=== PATIENT | female | born 1980 | race Caucasian/White ===

== ENCOUNTER 2016-09-15 07:24 | Observation (INO) ==
[2016-09-15] MEDS ORDERED: 0.9 % Sodium Chloride 1,000 ML IVC ONE (07:50)
[2016-09-15] MEDS ORDERED: *HR* HYDROmorphone (PF) 1 MG/ML SYRINGE IVP ONE ×2 (07:51→10:22)
--- NOTE | 2016-09-15 07:52 | Emergency Department Note ---
Disposition Clinical Impression: Acute colitis Ulcerative colitis Qualifiers: Ulcerative colitis location: unspecified ulcerative colitis location Digestive disease complication type: unspecified complication Qualified Code(s): K51.919 - Ulcerative colitis, unspecified with unspecified complications Abdominal pain Qualifiers: Abdominal location: unspecified location Qualified Code(s): R10.9 - Unspecified abdominal pain Nausea & vomiting Qualifiers: Vomiting type: unspecified Vomiting Intractability: unspecified Qualified Code( s): R11.2 - Nausea with vomiting, unspecified Disposition: Admitted As Inpatient Condition: Good Time of Disposition: 10:52 Abdominal Pain HPI - General Chief Complaint: ED Abdominal Pain Stated Complaint: ABD Pain,Vomitting Time Seen by Provider: 09/15/16 07:33 Source: patient Mode of arrival: ambulatory Limitations: no limitations Nursing Notes Reviewed: Yes Vital Signs Reviewed: Yes - History of Present Illness HPI Narrative: 35-year-old female history of ulcerative colitis presents ED with abdominal pain and vomiting. This is been ongoing for past several days and was recently seen in the ED 3 days ago for similar symptoms. Diffuse abdominal pain mostly in the left abdomen with no radiation. At first she is unable to put the pain into words but later describes pain as a crampy dull ache. Movement makes it worse. Nothing seems to make it better. She was prescribed morphine and Zofran for symptoms however the morphine gave her headache and has not taken any since. She has associated diarrhea that is chronic. Episode of nonbloody emesis this morning when she tried to eat breakfast. Reports of fever 3 days ago as high as 102. Denies any recent illness, cough, rhinorrhea, shortness of breath or chest pain. Denies any recent travel or rashes. She reports being offered admission on ED evaluation Tuesday but she declined. CT imaging of her abdomen revealed left colitis and a mass on the right kidney. She follows with Dr. Armenta and currently does not take any medications for her UC. She reports they tried infusions in the past but she did not tolerate it well and was discontinued. She saw her primary care physician Dr. Agee yesterday. History of a tubal ligation. No other prior abdominal surgeries. Pt Subjective Complaint: abdominal pain Pain Scale: 7 - Related Data Previous Rx's Medication Instructions Recorded Morphine Immed Rel [Morphine 30 mg PO Q6HR PRN #12 tablet 09/12/16 Sulfate] Ondansetron [Zofran ODT] 8 mg SL Q4HR PRN #10 tab.rapdis 09/12/16 Allergies Allergy/AdvReac Type Severity Reaction Status Date / Time Penicillins [PCN] Allergy Difficulty Verified 05/21/15 12:05 Breathing All systems ED: reviewed and negative except as stated. Constitutional: Reports: fever. Denies: chills Cardiovascular: Denies: chest pain Respiratory: Denies: cough, dyspnea Gastrointestinal: Reports: abdominal pain, nausea, vomiting, diarrhea. 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 Psychiatric history: Reports: no psych history - Social History Smoking status: Never smoker Alcohol use: Reports: none Drug use: Reports: none Physical Exam - General Limitations: no limitations General appearance: alert, in no apparent distress - Head Head exam: atraumatic, normocephalic, normal inspection - Eye Eye exam: Present: normal appearance, PERRL, EOMI - ENT ENT exam: normal exam, normal oropharynx, mucous membranes dry - Neck Neck exam: Present: normal inspection, full ROM, trachea midline - Chest Chest inspection: Present: normal inspection, symmetric chest wall rise - Respiratory Respiratory exam: Present: normal lung sounds bilaterally. Absent: respiratory distress, wheezes - Cardiovascular Cardiovascular exam: Present: regular rate, normal rhythm, normal heart sounds. Absent: systolic murmur, diastolic murmur - Abdominal Exam Abdominal exam: Present: soft, tenderness, normal bowel sounds. Absent: Non- Tender, distention, guarding, rebound, rigidity, incision, Sommer's sign, Rovsing's sign, tenderness at McBurney's Point, scar Abdominal tenderness: Present: RLQ, LLQ, suprapubic, diffuse - Extremities Exam Extremities exam: Present: normal inspection, full ROM, normal capillary refill. Absent: tenderness, pedal edema, calf tenderness - Back Exam Back exam: Present: normal inspection, full ROM. Absent: tenderness, CVA tenderness (R), CVA tenderness (L) - Neurological Exam Neurological exam: Present: alert, oriented X3 - Psychiatric Psychiatric exam: Present: normal affect, normal mood - Skin Skin exam: Present: warm, dry, intact, normal color Course Course Narrative: 35-year-old female history of ulcerative colitis presents to the ED with abdominal pain and vomiting. This has been ongoing for past several days. Patients afebrile here. Appear in no acute distress. She is slightly tachycardic. Lungs are clear auscultation bilaterally. Abdomen is soft nondistended and not rigid. She has diffuse tenderness to lower quadrants, most in the left lower quadrant. Negative McBurney's point. No CVA tenderness. Oral mucosa is tacky. Will recheck bloodwork, urine, IV hydration and symptom control. Reveal of her imaging and labs from 3 days prior reveals hemicolitis and a hypodense mass on the right kidney that will likely need follow up with PCP or Urologist. - Reevaluation(s) Reevaluation #1: Reviewed CT from 09/12/2016 which shows acute moderate left hemicolitis no obstruction perforation or abscess. There is also a 1.2 cm hypo density along the right mid kidney and pyelonephritis cannot be excluded. After 1L of lfuids and zofran with dilaudid she continues to be in discomfort. She remains tachycardic in the low 100s. Will give her a second liter and medications and call GI Dr. Armenta for any further management recommendations. Patient is aware of plan and agrees. She vocalizes wanting admission for treatment and hydration as she is scheduled to begin a new infusion medication for UC. Time: 10:45 - Consultations Consultation #1: Spoke with Dr. Armenta, GI, offered discharge with steroids or admission with IV steroids. Awaiting to get started on Ativo. Time: 10:49 Consultation #2: Spoke with on-call hospitalist edilberto Daley to admit for colitis, ulcerative colitis, and abdominal pain. No further orders at this time Time: 10:52 Vital Signs Temperature 97.9 F 09/15/16 07:27 Pulse Rate 104 09/15/16 07:27 Respiratory Rate 18 09/15/16 07:27 Blood Pressure 114/83 09/15/16 07:27 O2 Sat by Pulse Oximetry 97 09/15/16 07:27 Temperature 97.9 F 09/15/16 07:27 Pulse Rate 61 09/15/16 11:30 Respiratory Rate 16 09/15/16 12:48 Blood Pressure 122/69 09/15/16 12:48 O2 Sat by Pulse Oximetry 97 09/15/16 11:30 Oxygen Delivery Oxygen Delivery Room Air Abdominal Pain - MDM Narrative Medical decision making narrative: I examined this patient and my medical decision-making was reviewed with the AUTOMOTIVE ALIGNMENT SPECIALIST/PA/Advanced Practice Nurse/Resident Physician. I agree with the documented findings, disposition and treatment plan as described except to the extent set forth below. Patient was seen and evaluated by Dr. Manning and myself, agree with his evaluation and management plan, supervised care the patient's stay. Patient has a history of colitis. Was seen here in the emergency department had a scan done which showed colitis. Also an undifferentiated mass on her kidney. She went home with pain and nausea meds. She thinks she is dehydrated. We will try to place an IV and give her some fluids recheck her labs and reassess. She has a nonsurgical abdomen here I do not think she needs a CT of her abdomen. She will need follow-up with GI who she sees. Also urology referral. She is in agreement with plan. 0956 hrs.: Patient's labs look good. She does not appear dehydrated. She is getting fluids. Then we will reassess. Discuss her with her GI physician and most likely she will be dispositioned to home. She is in agreement this plan. 1046 hrs.: Spoke with GI and they said they can do steroids and send her home or steroids and admit. Patient wants to be admitted. We will bring her into the hospital impressions acute exacerbation of colitis. Patient stable at this time. Speaking with hospitalist. - Medical Records Medical records reviewed: Yes I reviewed the patient's medical records. - Lab Data Lab results reviewed: Yes I reviewed the patient's lab results. Result diagrams: 09/15/16 08:50 09/15/16 08:50 Lab Results 09/15/16 09/15/16 09/15/16 Range/Units 08:41 08:50 08:50 WBC 8.9 (4.3-11.1) K/mcL RBC 4.17 (3.82-4.97) M/mcL Hgb 12.3 (11.5-15.4) g/dL Hct 36.8 (35.3-44.9) % MCV 88.2 (83.0-100.0) fL MCH 29.5 (28.0-33.3) pg MCHC 33.4 (31.6-35.5) g/dL RDW 13.2 (11.5-14.5) % Plt Count 436 H (140-400) K/mcL MPV 8.6 L (9.4-12.4) fL Immature Gran % 0.7 (0-4) % Seg Neutrophils % 79.0 % Lymphocytes % 12.0 % Monocytes % 7.1 % Eosinophils % 0.6 % Basophils % 0.6 % Neutrophils # 7.0 (1.6-8.9) K/mcL Lymphocytes # 1.1 (0.6-4.6) K/mcL Monocytes # 0.6 (0.0-1.3) K/mcL Eosinophils # 0.1 (0.0-0.6) K/mcL Basophils # 0.1 (0.0-0.2) K/mcL Sodium 137 (136-145) mEq/L Potassium 3.5 (3.5-4.5) mEq/L Chloride 103 (98-109) mEq/L Carbon Dioxide 26 (19-29) mEq/L BUN 5 L (7-20) mg/dL Creatinine 0.64 (0.57-1.11) mg/dL Est GFR ( Amer) > 60 (> 60) Est GFR (Non-Af Amer) > 60 (> 60) BUN/Creatinine Ratio 8 (6-26) Glucose 100 H (70-99) mg/dL Calculated Osmolality 281 (280-300) Calcium 8.7 (8.6-10.8) mg/dL Total Bilirubin 0.4 (0.2-1.2) mg/dL Direct Bilirubin 0.2 (0.0-0.5) mg/dL Indirect Bilirubin 0.2 (0.0-1.2) mg/dL AST 10 (5-34) Units/L ALT 10 (0-55) Units/L Alkaline Phosphatase 67 (38-126) Units/L Serum Total Protein 7.0 (6.0-8.3) g/dL Albumin 2.6 L (3.5-5.0) g/dL Globulin 4.4 H (2.4-3.5) g/dL Albumin/Globulin Ratio 0.6 L (1.1-2.2) Lipase < 4 L (8-78) Units/L Urine Color Dark Yellow (Yellow) Urine Clarity Cloudy A (Clear) Urine pH 7.5 (5.0-8.0) pH Units Ur Specific [place] 1.020 (1.010-1.025) Urine Protein Trace (Neg-Trace) mg/dL Urine Glucose (UA) Normal (Normal) mg/dL Urine Ketones Negative (Negative) mg/dL Urine Blood Negative (Negative) Urine Nitrite Negative (Negative) Urine Bilirubin Small H (Negative) Urine Urobilinogen Normal (Normal) mg/dL Ur Leukocyte Esterase Small H (Negative) Urine Microscopic RBC 0-3 (0-3) per hpf Urine Microscopic WBC 3-5 H (0-3) per hpf Ur Squamous Epith Cells Many H (None-Few) per lpf Calcium Oxalate Crystal Present Urine Bacteria None Seen (None-Few) per hpf Hyaline Casts None Seen (None-Few) per lpf Urine Yeast Test Not Performed Ur Culture Indicated? YES A (NO) - Radiology Data Radiology results reviewed: Yes I reviewed the patient's radiology results. CT reviewed showed acute moderate left lissy colitis with no obstruction perforation or abscess
[2016-09-15] MEDS: Ondansetron 4 MG/2 ML VIAL IVP ONE ×2 (08:57→10:43)
[2016-09-15 08:59] LABS: Basophils # 0.1 K/mcL (0.0-0.2); Basophils % 0.6 %; Eosinophils # 0.1 K/mcL (0.0-0.6); Eosinophils % 0.6 %; Hematocrit 36.8 % (35.3-44.9); Hemoglobin 12.3 g/dL (11.5-15.4); Immature Granulocytes % 0.7 % (0-4); Lymphocytes # 1.1 K/mcL (0.6-4.6); Mean Corpuscular HGB Conc 33.4 g/dL (31.6-35.5); Mean Corpuscular Hemoglobin 29.5 pg (28.0-33.3); Mean Corpuscular Volume 88.2 fL (83.0-100.0); Mean Platelet Volume 8.6 fL (9.4-12.4); Monocytes # 0.6 K/mcL (0.0-1.3); Monocytes % 7.1 %; Platelet Count 436 K/mcL (140-400); Red Blood Count 4.17 M/mcL (3.82-4.97); Red Cell Distribution Width 13.2 % (11.5-14.5)
[2016-09-15 08:59] LABS: Bilirubin,Urine Small (Negative); Blood,Urine Negative (Negative); Clarity,Urine Cloudy (Clear); Color,Urine Dark Yellow (Yellow); Glucose,Urine (UA) Normal (Normal); Ketones,Urine Negative (Negative); Leukocyte Esterase,Urine Small (Negative); Nitrite,Urine Negative (Negative); PH,Urine 7.5 pH Units (5.0-8.0); Protein,Urine Trace mg/dL (Neg-Trace); Urobilinogen,Urine Normal (Normal)
[2016-09-15 09:02] LABS: Bacteria,Urine None Seen per hpf (None-Few); Hyaline Casts,Urine None Seen per lpf (None-Few); RBC,Urine 0-3 per hpf (0-3); Squamous Epithelial Cell,Urine Many per lpf (None-Few)
[2016-09-15 09:06] LABS: Calcium Oxalate Crystals,Urine Present
[2016-09-15 09:11] LABS: Alanine Aminotransferase 10 Units/L (0-55); Albumin 2.6 g/dL (3.5-5.0); Albumin/Globulin Ratio 0.6 (1.1-2.2); Alkaline Phosphatase 67 Units/L (38-126); Aspartate Amino Transferase 10 Units/L (5-34); BUN/Creatinine Ratio 8 (6-26); Bilirubin,Direct 0.2 mg/dL (0.0-0.5); Bilirubin,Indirect 0.2 mg/dL (0.0-1.2); Bilirubin,Total 0.4 mg/dL (0.2-1.2); Calcium 8.7 mg/dL (8.6-10.8); Carbon Dioxide 26 mEq/L (19-29); Chloride 103 mEq/L (98-109); Globulin 4.4 g/dL (2.4-3.5); Glucose 100 mg/dL (70-99); Osmolality,Calculated 281 (280-300); Potassium 3.5 mEq/L (3.5-4.5); Sodium 137 mEq/L (136-145); eGFR For African Americans > 60 (> 60); eGFR For Non-African Americans > 60 (> 60)
[2016-09-15 09:13] LABS: Blood Urea Nitrogen 5 mg/dL (7-20); Lipase < 4 Units/L (8-78)
[2016-09-15] MEDS: 0.9 % Sodium Chloride 1,000 ML IVC SCH ×3 (10:33→13:00)
[2016-09-15] MEDS ORDERED: Ondansetron 4 MG/2 ML VIAL IV ONE (10:36)
[2016-09-15] MEDS ORDERED: methylPREDNISolone 125 MG/2 ML VIAL IVP ONE (10:46)
[2016-09-15] MEDS ORDERED: 0.9 % Sodium Chloride 1,000 ML IVC SCH (12:00)
[2016-09-15] MEDS ORDERED: Ondansetron 4 MG/2 ML VIAL IVP PRN (12:40)
[2016-09-15] MEDS ORDERED: Naloxone 0.4 MG/ML INJ IVP PRN (12:40)
--- NOTE | 2016-09-15 12:53 | Internal Med History&Physical ---
<Shahla Padron - Last Filed: 09/15/16 20:01> Internal Medicine - H&P: HPI History of present illness: Ms. Perez is a 35 year old female Internal Medicine - H&P: Meds Morphine Immed Rel [Morphine Sulfate] 30 mg PO Q6HR PRN #12 tablet 09/12/16 [Rx] Ondansetron [Zofran ODT] 8 mg SL Q4HR PRN #10 tab.rapdis 09/12/16 [Rx] Allergies Penicillins [PCN] Allergy (Verified 05/21/15 12:05) Difficulty Breathing All Systems PM: A 10-system review of systems was performed and is negative for pertinent findings except as documented above in the HPI. - Constitutional Vitals: Temp Pulse Resp BP Pulse Ox 98.1 F 89 16 104/66 95 09/15/16 13:30 09/15/16 13:30 09/15/16 13:30 09/15/16 13:30 09/15/16 13:30 Internal Med - H&P Results - Labs CBC & Chem 7: 09/15/16 08:50 09/15/16 08:50 - Attending Attestation Patient seen and examined, agree with PIETER Montez. 35F with history of UC, failed numerous medications regimens, presents with UC flare. Severe abdominal pain, poor PO intake. IV steroids started in ER, will continue. GI consulted, appreciate assistance. <Mone Montez L - Last Filed: 09/15/16 21:32> Date of Encounter: 09/15/16 Time of Encounter: 11:30 Assessment and Plan (1) Acute colitis Current visit: Yes Status: Acute 1 patient has past history of ulcerative colitis is seen by has failed several outpatient oral medication as well as IV. She has been experiencing increasing abdominal pain and loose stool bloody diarrhea for several days. was notified per the ED physician discussed case recommending steroid treatment and will follow-up. 2 continue with IV steroids 3 nothing by mouth for now and advance diet as tolerated 4 Zofran for nausea 5 Diladid for pain (2) DVT prophylaxis Current visit: Yes Status: Acute JO ANN hose (3) Renal mass of unknown nature Current visit: Yes Status: Acute CT of abd revealed Indeterminate approximately 1.2 cm focus of hypodensity density along the right mid kidney focal, pyelonephritis cannot be excluded. Urinalysis not indicative of pylonephritis, no leukocytosis. may need further diagnostic testing as outpatient, will have day team follow up Internal Medicine - H&P: HPI Chief complaint: Abdominal pain Admitted From: Emergency Dept Plans for Post Hospital Care: Home History of present illness: Ms. Perez is a 35 year old female past history of ulcerative colitis. Patient has been experiencing diffuse abdominal pain mostly in the left lower abdomen for several days and was seen recently in the ER 3 days ago for similar symptoms. At that time CT imaging of her abdomen revealed left colitis and a mass on her right kidney. She was offered admission however declined at that time. She was prescribed morphine and Zofran for symptoms however the morphine gave her a headache and she did not take any sense. The patient describes the abdominal pain mostly in her left abdomen with no radiation describing as crampy dull aching. Movement makes it worse she states that they really makes it feel better. She has associated diarrhea that is chronic and episodes of nonbloody emesis this a.m. when she tried to eat breakfast. She did have a fever approximately 3 days ago which she stated was as high as 102. She denies any recent illness cough rhinorrhea shortness of breath or chest pain. She denies any recent travel or rashes. She follows with Dr. Armenta and had failed multiple oral medications. She was placed on Humira as well as Remicade which were stopped due to side effects. She presented to the ER with the above complaints. According to records patient presented slightly tachycardic she was afebrile she was given IV fluids as well as Zofran and Dilaudid. Lab work did not show any leukocytosis Dr. Ríos was notified who suggested oral steroids and discharged home on admission with IV steroids. Patient requested to be admitted to the physician place consult for Dr. Armenta. Presently the patient appears to be mild distress complains of abdominal cramping and lower abdomen. Upon assessment patient's abdomen is soft nondistended diffuse tenderness upon palpation throughout with guarding. Patient denies any nausea or vomiting at this time and is requesting something to eat. Presently the patient appears hemodynamically stable Past Med Surg Social Fam HX - Past Medical History Medical history: other Psychiatric history: no psych history - Social History Smoking Status: Never smoker Smokeless Tobacco Status: No Alcohol use: none Drug use: none - Family History Mother Living Status: Hx Family Cancer: Yes (Renal cancer) Father Living Status: Still Living Hx Family Cardiac Disorders: Yes All Systems PM: A 10-system review of systems was performed and is negative for pertinent findings except as documented above in the HPI. - Constitutional Constitutional: anorexia, malaise - Cardiovascular Cardiovascular ROS IM: no chest pain, no diaphoresis, no dyspnea, no lightheadedness, no palpitations, no syncope - Respiratory Respiratory: no cough, no dyspnea, no wheezing, no excessive phlegm production - Gastrointestinal Gastrointestinal: abdominal pain, cramping, loose stools Additional comments: Bloody stools - Genitourinary Genitourinary: no change in urinary stream, no dysuria, no flank pain, no hematuria - Musculoskeletal Musculoskeletal ROS IM: no numbness, no tingling - Integumentary Integumentary IM: no rash, no unusual bruising - Neurological Neurological ROS: no confusion, no convulsions, no focal weakness, no numbness, no tingling, no tremor(s) - Constitutional Vitals: Temp Pulse Resp BP Pulse Ox 97.9 F 61 18 100/69 97 09/15/16 07:27 09/15/16 11:30 09/15/16 11:30 09/15/16 11:30 09/15/16 11:30 General appearance: Present: mild distress, A&O X 3, answers questions appropriately - Head Head exam: Present: atraumatic, normocephalic - Neck Neck exam general surgery: Present: supple, trachea midline. Absent: lymphadenopathy - Respiratory Respiratory exam: Present: CTAB. Absent: accessory muscle use, rales, rhonchi, wheezes - Cardiovascular Cardiovascular exam: Present: RRR, +S1, +S2. Absent: diastolic murmur, gallop, rubs, systolic murmur - GI/Abdominal GI/Abdominal exam: Present: guarding, normal bowel sounds, soft, tenderness, no peritoneal signs. Absent: distended - Extremities Exam Extremities exam: Present: warm, radial pulses palpable and symetrical. Absent : calf tenderness, cyanotic, pedal edema - Neurological Exam Neurological exam: Present: CN II-XII intact, oriented X3, no focal deficits. Absent: pronater drift, facial droop, speech deficit - Skin Skin exam: Present: dry, intact Internal Med - H&P Results - Labs CBC & Chem 7: 09/15/16 08:50 09/15/16 08:50 - Diagnostic Studies CT scan - abdomen Additional comments: CT of abdomen dated 09/12/16 per radiology read acute moderate left heme occult colitis with no obstruction perforation or abscess. Indeterminate approximately 1.2 cm focus of hypodensity density along the right mid kidney focal pyelonephritis cannot be excluded. The area of interest was not identified on the prior noncardiac contrast exam. If there is no concern clinically and by urinalysis of pyelonephritis and follow up CT renal mass protocol is recommended to further characterize the right renal lesion.
[2016-09-16] MEDS: 0.9 % Sodium Chloride 1,000 ML IVC SCH ×2 (01:27→09:15)
[2016-09-16 05:22] LABS: Basophils % 0.3 %; Hematocrit 31.3 % (35.3-44.9); Immature Granulocytes % 0.8 % (0-4); Lymphocytes # 0.9 K/mcL (0.6-4.6); Lymphocytes % 11.5 %; Mean Corpuscular HGB Conc 32.6 g/dL (31.6-35.5); Mean Corpuscular Hemoglobin 29.1 pg (28.0-33.3); Mean Corpuscular Volume 89.4 fL (83.0-100.0); Monocytes # 0.6 K/mcL (0.0-1.3); Monocytes % 7.9 %; Neutrophils # 6.3 K/mcL (1.6-8.9); Platelet Count 405 K/mcL (140-400); Red Cell Distribution Width 13.2 % (11.5-14.5); Segmented Neutrophils % 79.5 %
[2016-09-16 05:26] LABS: Hemoglobin 10.2 g/dL (11.5-15.4)
[2016-09-16 05:48] LABS: BUN/Creatinine Ratio 5 (6-26); Carbon Dioxide 24 mEq/L (19-29); Chloride 106 mEq/L (98-109); Glucose 103 mg/dL (70-99); Osmolality,Calculated 283 (280-300); Potassium 3.6 mEq/L (3.5-4.5); Sodium 138 mEq/L (136-145); eGFR For African Americans > 60 (> 60); eGFR For Non-African Americans > 60 (> 60)
[2016-09-16 05:50] LABS: Blood Urea Nitrogen 3 mg/dL (7-20)
[2016-09-16 06:06] LABS: Platelet Estimate Normal (Normal)
[2016-09-16] MEDS ORDERED: MethylPREDNISolone 40 MG/ML VIAL IVP SCH (09:00)
--- NOTE | 2016-09-16 09:20 | Internal Med Progress Note ---
<Bam Kennedy - Last Filed: 09/16/16 12:41> Date of Encounter: 09/16/16 Time of Encounter: 09:00 - Assessment and plan (1) Acute colitis Current Visit: Yes Status: Acute Assessment and plan: Likely secondary to an acute flare up of Ulcerative Colitis. CT abdomen/pelvis with contrast revealed acute moderate left hemicolitis with no obstruction, perforation, or abscess. Gastroenterology has been consulted, continue IV steroids Increased to Solu-Medrol 60 mg qd. Pain being controlled with PRN Dilaudid 0.5 mg Q4HR (2) Ulcerative colitis Current Visit: Yes Status: Acute Assessment and plan: Per plan in assessment above. Qualifiers: Ulcerative colitis location: unspecified ulcerative colitis location Digestive disease complication type: unspecified complication Qualified Code(s ): K51.919 - Ulcerative colitis, unspecified with unspecified complications (3) Abdominal pain Current Visit: Yes Status: Acute Assessment and plan: Secondary to acute flare up of Ulcerative Colitis. Continue IV steroids Continue pain management GI has been consulted. Qualifiers: Abdominal location: unspecified location Qualified Code(s): R10.9 - Unspecified abdominal pain (4) Nausea & vomiting Current Visit: Yes Status: Acute Assessment and plan: Has improved since admission but will continue to treat with anti-emetics PRN Increase diet as tolerated. Qualifiers: Vomiting type: unspecified Vomiting Intractability: unspecified Qualified Code(s): R11.2 - Nausea with vomiting, unspecified (5) Renal mass of unknown nature Current Visit: Yes Status: Acute Assessment and plan: CT abdomen/pelvis with contrast revealed indetermintate 1.2 cm focus of hypodensity along the right mid kidney. Focal pyelonephritis cannot be excluded. The area of interest was not identified on prior noncontrasted exam. Follow up CT renal mass protocol is recommended to characterize right renal lesion. No concern at this time for pyelonephritis in the absence of elevated WBC, urinary symptoms, exam findings, and presence of normal vital signs. Follow up with PCP as outpatient and CT ordered for further evaluation for renal lesion ordered. (6) DVT prophylaxis Current Visit: Yes Status: Acute Assessment and plan: Patient is ambulatory. Continue to encourage ambulation. - Subjective Interval history: 35 year old female with a history of Ulcerative colitis presented to the ED with abdominal pain, nausea and vomiting that has been going on for about a week. She is followed by Dr. Armenta and states that she saw him last Tuesday and symptoms really flared up on . Patient states that she has also had bloody diarrhea which has been going on for about a month but states that it has improved some. Patient reports mostly left sided abdominal pain but also has a little pain in the RUQ to mid epigastric area. States that her pain is worsened by walking and also by having a bowel movement. Patient reports that she does not tolerate a liquid diet very well because broth makes her even more nauseated. She would like her diet advanced and feels like she could tolerate a normal diet. She states that she is pleased with her pain control and the pain is improved from yesterday. She reports sweats overnight. Denies fever, chills, headaches, vomiting, chest pain, shortness of breath, changes in urination, weakness, or loss of sensation. - Constitutional Vitals: Temp Pulse Resp BP Pulse Ox 98.2 F 74 14 97/59 97 09/16/16 07:02 09/16/16 07:02 09/16/16 07:02 09/16/16 07:02 09/16/16 07:02 General appearance: Present: A&O X 3, no acute distress, answers questions appropriately - Head Head exam: Present: atraumatic, normal inspection, normocephalic - Eye Eye exam: Present: EOMI, normal appearance, PERRL. Absent: conjunctival injection - Neck Neck exam general surgery: Present: normal inspection, supple, trachea midline. Absent: lymphadenopathy - Respiratory Respiratory exam: Present: CTAB. Absent: accessory muscle use, rales, rhonchi, wheezes - Cardiovascular Cardiovascular exam: Present: RRR, +S1, +S2. Absent: diastolic murmur, gallop, rubs, systolic murmur - GI/Abdominal GI/Abdominal exam: Present: normal bowel sounds, soft, tenderness (epigastric tenderness). Absent: distended, guarding, rebound - Extremities Exam Extremities exam: Present: normal inspection, warm. Absent: calf tenderness, pedal edema, tenderness - Neurological Exam Neurological exam: Present: alert, CN II-XII intact, oriented X3, no focal deficits, strengths equal and symetr throughout. Absent: facial droop, speech deficit - Skin Skin exam: Present: dry, intact, normal color, warm. Absent: diaphoretic, erythema, pallor Internal Medicine: Result - Labs CBC & Chem 7: 09/16/16 04:28 09/16/16 04:28 Labs: Short CBC 09/16/16 Range/Units 04:28 WBC 7.9 (4.3-11.1) K/mcL Hgb 10.2 L D (11.5-15.4) g/dL Hct 31.3 L (35.3-44.9) % Plt Count 405 H (140-400) K/mcL Neutrophils # 6.3 (1.6-8.9) K/mcL BMP 09/16/16 04:28 Sodium 138 Potassium 3.6 Chloride 106 Carbon Dioxide 24 BUN 3 L Creatinine 0.57 Glucose 103 H Calcium 8.0 L Consult Discharge Plan - Plan Referrals: Pat Agee, ROOFING SUPERVISOR [Primary Care Provider] - <Yessica Laird - Last Filed: 09/16/16 18:53> - Constitutional Vitals: Temp Pulse Resp BP Pulse Ox 99.4 F 82 16 102/61 96 09/16/16 18:41 09/16/16 18:41 09/16/16 18:41 09/16/16 18:41 09/16/16 18:41 Internal Medicine: Result - Labs CBC & Chem 7: 09/16/16 04:28 09/16/16 04:28 Labs: Short CBC 09/16/16 Range/Units 04:28 WBC 7.9 (4.3-11.1) K/mcL Hgb 10.2 L D (11.5-15.4) g/dL Hct 31.3 L (35.3-44.9) % Plt Count 405 H (140-400) K/mcL Neutrophils # 6.3 (1.6-8.9) K/mcL BMP 09/16/16 04:28 Sodium 138 Potassium 3.6 Chloride 106 Carbon Dioxide 24 BUN 3 L Creatinine 0.57 Glucose 103 H Calcium 8.0 L - Attending Attestation I examined this patient and reviewed laboratory, imaging and all diagnostic data. My medical decision-making was reviewed with Bam Bautista - Resident Physician. I agree with the documented findings, disposition and treatment plan as described above.
[2016-09-16] MEDS ORDERED: MethylPREDNISolone 40 MG/ML VIAL IVP ONE (10:00)
[2016-09-16] MEDS: *HR* HYDROmorphone (PF) 1 MG/ML SYRINGE IVP PRN (10:40)
--- NOTE | 2016-09-16 11:31 | Gastroenterology Consult Note ---
<Hood Woodward - Last Filed: 09/16/16 11:28> Date of Encounter: 09/16/16 Time of Encounter: 10:20 - Assessment and plan (1) Ulcerative colitis Current Visit: Yes Status: Acute Assessment and plan: CT A/P with acute moderate left hemicolitis, no obstruction, perforation, or abscess. Increase Solu-Medrol to 60 mg daily. Entyvio has been improved. We will start Entyvio as an outpatient. TB testing negative, histo negative, and hepatitis profile negative. Qualifiers: Ulcerative colitis location: unspecified ulcerative colitis location Digestive disease complication type: unspecified complication Qualified Code(s ): K51.919 - Ulcerative colitis, unspecified with unspecified complications (2) Abdominal pain Current Visit: Yes Status: Acute Assessment and plan: Secondary to ulcerative colitis. Qualifiers: Abdominal location: unspecified location Qualified Code(s): R10.9 - Unspecified abdominal pain (3) Nausea & vomiting Current Visit: Yes Status: Acute Assessment and plan: Continue antiemetics. Qualifiers: Vomiting type: unspecified Vomiting Intractability: unspecified Qualified Code(s): R11.2 - Nausea with vomiting, unspecified - Time Spent With Patient Total time spent is greater than 50% in coordination of care (as documented) at patient's floor/unit and/or counseling patient: GI History of Present Illness - Data of Consult Patient: known to practice within the last 3 years Consult date: 09/16/16 Requesting Physician: Yessica Laird - Consult Narrative Reason for consult: UC History of present illness: Ms. Perez is a 35 year old female with PMHx of ulcerative colitis who presented with LLQ pain for several days. She was seen in the ED on 09/12/[address] A/P with acute moderate left hemicolitis, no obstruction, perforation, or abscess. She refused admission at that time. She describes her abdominal pain as crampy, dull, and aching. Movement makes the pain worse. She reports diarrhea and emesis. She follows with Dr. Armenta and has failed multiple oral medications. Humira and Remicade were stopped due to side effects. She was started on Solu-Medrol 40 mg daily on admission. Procedures: Colonoscopy 05/21/15 Dr. Armenta inflammation secondary to IBD in rectum /sigmoid/descending. NSAIDs: None Anticoagulation: None Past Med Surg Social Fam HX - Past Medical History Medical history: other Psychiatric history: no psych history - Social History Smoking Status: Never smoker Smokeless Tobacco Status: No Alcohol use: none Drug use: none - Family History Mother Living Status: Hx Family Cancer: Yes (Renal cancer) Father Living Status: Still Living Hx Family Cardiac Disorders: Yes - Gastrointestinal Gastrointestinal: Present: as per HPI - Constitutional Constitutional: as per HPI - EENT Eyes: as per HPI Ears: Present: as per HPI Nose, mouth and throat: Present: as per HPI - Cardiovascular Cardiovascular ROS: Present: as per HPI - Respiratory Respiratory IM: Present: as per HPI - Genitourinary Genitourinary: Absent: change in color, Urinary frequency - Neurological ROS Neurological GI: Present: as per HPI - Hematologic/Lymphatic Hematologic/Lymphatic pediatric: Present: as per HPI - Musculoskeletal Musculoskeletal ROS GI: Present: as per HPI - Integumentary Integumentary GI: Present: as per HPI - Psychiatric ROS Psychiatric GI: Present: as per HPI - Endocrine Endocrine IM: Present: as per HPI - Constitutional Vitals: Temp Pulse Resp BP Pulse Ox 98.3 F 77 14 121/75 96 09/16/16 10:38 09/16/16 10:38 09/16/16 10:38 09/16/16 10:38 09/16/16 10:38 General appearance: Present: cooperative, A&O X 3, no acute distress, answers questions appropriately - Head Head exam: Present: atraumatic, normocephalic - Eye Eye exam: Present: normal appearance, sclera anicteric - ENT ENT exam: Present: mucous membranes moist - Neck Neck exam general surgery: Present: normal inspection, trachea midline - Respiratory Respiratory exam: Present: CTAB. Absent: rales, rhonchi, wheezes - Cardiovascular Cardiovascular exam: Present: RRR, +S1, +S2 - GI/Abdominal GI/Abdominal exam: Present: normal bowel sounds, soft, tenderness, no peritoneal signs. Absent: distended, firm, guarding - Rectal Rectal exam: Present: deferred - Extremities Exam Extremities exam: Present: warm - Neurological Exam Neurological exam: Present: no focal deficits - Psychiatric Psychiatric exam: Present: normal affect, normal mood - Skin Skin exam: Present: dry, intact, normal color, warm Results - Labs CBC & Chem 7: 09/16/16 04:28 09/16/16 04:28 Labs: Last Result Calcium 8.0 mg/dL (8.6-10.8) L 09/16/16 04:28 Entire Visit Hgb 10.2 g/dL (11.5-15.4) L D 09/16/16 04:28 Hct 31.3 % (35.3-44.9) L 09/16/16 04:28 Total Bilirubin 0.4 mg/dL (0.2-1.2) 09/15/16 08:50 AST 10 Units/L (5-34) 09/15/16 08:50 ALT 10 Units/L (0-55) 09/15/16 08:50 Lipase < 4 Units/L (8-78) L 09/15/16 08:50 Consult Discharge Plan - Plan Referrals: Pat Agee, DRYING MACHINE OPERATOR [employer] [Primary Care Provider] - <Herrera Armenta - Last Filed: 09/16/16 17:48> Time of Encounter: 13:00 - Time Spent With Patient Total time spent is greater than 50% in coordination of care (as documented) at patient's floor/unit and/or counseling patient: GI History of Present Illness - Data of Consult Requesting Physician: Yessica Laird - Consult Narrative History of present illness: Ms. Perez is a 35 year old female - Constitutional Vitals: Temp Pulse Resp BP Pulse Ox 97.5 F L 78 14 109/70 96 09/16/16 14:46 09/16/16 14:46 09/16/16 14:46 09/16/16 14:46 09/16/16 14:46 Results - Labs CBC & Chem 7: 09/16/16 04:28 09/16/16 04:28 Labs: Last Result Calcium 8.0 mg/dL (8.6-10.8) L 09/16/16 04:28 Entire Visit Hgb 10.2 g/dL (11.5-15.4) L D 09/16/16 04:28 Hct 31.3 % (35.3-44.9) L 09/16/16 04:28 Total Bilirubin 0.4 mg/dL (0.2-1.2) 09/15/16 08:50 AST 10 Units/L (5-34) 09/15/16 08:50 ALT 10 Units/L (0-55) 09/15/16 08:50 Lipase < 4 Units/L (8-78) L 09/15/16 08:50 - Attending Attestation I examined this patient and my medical decision-making was reviewed with the PET TRAINER/PA/Advanced Practice Nurse/Resident Physician. I agree with the documented findings, disposition and treatment plan as described except to the extent set forth below. Cont IV steroids and switch to pO Medrol 32 mg on discharge. Cannot have entyvio as in pt and for 24 hr after d/c otherwise will not be covered.
[2016-09-17] MEDS: *HR* HYDROmorphone (PF) 1 MG/ML SYRINGE IVP PRN ×2 (00:36→08:03)
[2016-09-17 08:02] VITALS: BP 109/68
--- NOTE | 2016-09-17 08:25 | Internal Med Progress Note ---
Time of Encounter: 08:25 - Assessment and plan (1) Acute colitis Current Visit: Yes Status: Acute Assessment and plan: Secondary to acute exacerbation ulcerative colitis CT abdomen/pelvis with contrast revealed acute moderate left hemicolitis with no obstruction, perforation, or abscess. GI following patient. Increased to Solu-Medrol 60 mg qd. Will consider switching to PO Pain being controlled with PRN Dilaudid 0.5 mg Q4HR (2) Ulcerative colitis Current Visit: Yes Status: Acute Assessment and plan: Per plan in assessment above. Qualifiers: Ulcerative colitis location: unspecified ulcerative colitis location Digestive disease complication type: unspecified complication Qualified Code(s ): K51.919 - Ulcerative colitis, unspecified with unspecified complications (3) Abdominal pain Current Visit: Yes Status: Acute Assessment and plan: Secondary to acute flare up of Ulcerative Colitis. Continue steroids Continue pain management GI has been consulted. Qualifiers: Abdominal location: unspecified location Qualified Code(s): R10.9 - Unspecified abdominal pain (4) Nausea & vomiting Current Visit: Yes Status: Acute Assessment and plan: Has improved since admission but will continue to treat with anti-emetics PRN Patient has tolerated full diet well. Qualifiers: Vomiting type: unspecified Vomiting Intractability: unspecified Qualified Code(s): R11.2 - Nausea with vomiting, unspecified (5) Renal mass of unknown nature Current Visit: Yes Status: Acute Assessment and plan: CT abdomen/pelvis with contrast revealed indetermintate 1.2 cm focus of hypodensity along the right mid kidney. Focal pyelonephritis cannot be excluded. The area of interest was not identified on prior noncontrasted exam. Follow up CT renal mass protocol is recommended to characterize right renal lesion. No concern at this time for pyelonephritis in the absence of elevated WBC, urinary symptoms, exam findings, and presence of normal vital signs. Follow up with PCP as outpatient and CT ordered for further evaluation for renal lesion ordered. (6) DVT prophylaxis Current Visit: Yes Status: Acute Assessment and plan: Patient is ambulatory. Continue to encourage ambulation. - Subjective Interval history: 35 year old female with a history of Ulcerative colitis presented to the ED with abdominal pain, nausea and vomiting that has been going on for about a week. Patient states that she is feeling better today and is not having any abdominal pain currently but she did receive her pain meds just prior to encounter. She reports that her bowel movements appear like sand with some blood on them but states that this is normal and improving. She states that she is tolerating her regular diet well and has had no issues with it. She also reports that her nausea is well controlled with the anti-emetic. She denies any new or worsening symptoms. Denies fever, headache, chest pain, SOB, cough, abdominal pain, nausea, vomiting, abdominal pain, urinary symptoms, calf tenderness, weakness, loss of sensation. - Constitutional Vitals: Temp Pulse Resp BP Pulse Ox 98.2 F 64 16 109/68 96 09/17/16 06:45 09/17/16 06:45 09/17/16 06:45 09/17/16 06:45 09/17/16 06:45 General appearance: Present: A&O X 3, no acute distress, answers questions appropriately - Head Head exam: Present: atraumatic, normocephalic - Eye Eye exam: Present: EOMI, normal appearance, PERRL, sclera anicteric - Neck Neck exam general surgery: Present: supple, trachea midline. Absent: lymphadenopathy - Respiratory Respiratory exam: Present: CTAB. Absent: accessory muscle use, rales, rhonchi, wheezes - Cardiovascular Cardiovascular exam: Present: RRR, +S1, +S2. Absent: diastolic murmur, gallop, rubs, systolic murmur - GI/Abdominal GI/Abdominal exam: Present: normal bowel sounds, soft. Absent: distended, guarding, rebound, tenderness - Extremities Exam Extremities exam: Present: warm, radial pulses palpable and symetrical. Absent : calf tenderness, cyanotic, pedal edema - Neurological Exam Neurological exam: Present: alert, CN II-XII intact, oriented X3, no focal deficits. Absent: facial droop, speech deficit - Skin Skin exam: Present: dry, intact, normal color. Absent: rash Internal Medicine: Result - Labs CBC & Chem 7: 09/17/16 08:52 09/17/16 08:52 Consult Discharge Plan - Plan Referrals: Pat Agee CNP [Primary Care Provider] - 09/24/16 10:10 am
[2016-09-17] MEDS ORDERED: MethylPREDNISolone 40 MG/ML VIAL IVP SCH (09:00)
[2016-09-17 09:07] LABS: Basophils % 0.3 %; Eosinophils % 0.2 %; Hematocrit 33.4 % (35.3-44.9); Hemoglobin 10.8 g/dL (11.5-15.4); Immature Granulocytes % 1.9 % (0-4); Lymphocytes # 2.2 K/mcL (0.6-4.6); Mean Corpuscular HGB Conc 32.3 g/dL (31.6-35.5); Mean Corpuscular Volume 89.8 fL (83.0-100.0); Mean Platelet Volume 8.7 fL (9.4-12.4); Monocytes # 0.9 K/mcL (0.0-1.3); Monocytes % 9.7 %; Neutrophils # 5.9 K/mcL (1.6-8.9); Platelet Count 435 K/mcL (140-400); Red Blood Count 3.72 M/mcL (3.82-4.97); Red Cell Distribution Width 13.5 % (11.5-14.5); Segmented Neutrophils % 63.9 %
[2016-09-17 09:19] LABS: BUN/Creatinine Ratio 11 (6-26); Blood Urea Nitrogen 7 mg/dL (7-20); Calcium 8.7 mg/dL (8.6-10.8); Carbon Dioxide 26 mEq/L (19-29); Chloride 106 mEq/L (98-109); Glucose 82 mg/dL (70-99); Osmolality,Calculated 289 (280-300); Potassium 3.1 mEq/L (3.5-4.5); Sodium 141 mEq/L (136-145); eGFR For African Americans > 60 (> 60); eGFR For Non-African Americans > 60 (> 60)
--- NOTE | 2016-09-17 10:14 | Discharge Summary ---
<Bam Kenndey - Last Filed: 09/17/16 10:39> Date of Encounter: 09/17/16 Time of Encounter: 10:12 - Discharge Diagnosis (1) Acute colitis Priority: Primary Status: Acute Comments: Secondary to acute exacerbation ulcerative colitis CT abdomen/pelvis with contrast revealed acute moderate left hemicolitis with no obstruction, perforation, or abscess. GI following patient. 32mg Medrol PO Pain being controlled with PRN Dilaudid 0.5 mg Q4HR (2) Ulcerative colitis Priority: Primary Status: Acute Comments: Per plan in assessment above. Qualifiers: Ulcerative colitis location: unspecified ulcerative colitis location Digestive disease complication type: unspecified complication Qualified Code(s ): K51.919 - Ulcerative colitis, unspecified with unspecified complications (3) Abdominal pain Priority: Primary Status: Acute Comments: Secondary to acute flare up of Ulcerative Colitis. Continue steroids Continue pain management Qualifiers: Abdominal location: unspecified location Qualified Code(s): R10.9 - Unspecified abdominal pain (4) Nausea & vomiting Priority: Primary Status: Acute Comments: Has improved since admission but will continue to treat with anti-emetics PRN Patient has tolerated full diet well. Qualifiers: Vomiting type: unspecified Vomiting Intractability: unspecified Qualified Code(s): R11.2 - Nausea with vomiting, unspecified (5) Hypokalemia Priority: Secondary Status: Acute Comments: Potassium 3.1, replace with 40mEQ potassium po Follow up labs as outpatient. (6) Renal mass of unknown nature Priority: Secondary Status: Acute Comments: CT abdomen/pelvis with contrast revealed indetermintate 1.2 cm focus of hypodensity along the right mid kidney. Focal pyelonephritis cannot be excluded. The area of interest was not identified on prior noncontrasted exam. Follow up CT renal mass protocol is recommended to characterize right renal lesion. No concern at this time for pyelonephritis in the absence of elevated WBC, urinary symptoms, exam findings, and presence of normal vital signs. Follow up with PCP as outpatient and CT ordered for further evaluation for renal lesion ordered. - Discharge Medications Prescriptions: Ondansetron ODT [Zofran ODT] 8 mg SL Q4HR #20 tab.rapdis MethylPREDNISolone [Medrol] 32 mg PO DAILY #7 tablet Home Medications: Ondansetron [Zofran ODT] 8 mg SL Q4HR PRN #10 tab.rapdis 09/12/16 [Rx] MethylPREDNISolone [Medrol] 32 mg PO DAILY #7 tablet 09/17/16 [Rx] Ondansetron ODT [Zofran ODT] 8 mg SL Q4HR #20 tab.rapdis 09/17/16 [Rx] Allergies/Adverse Reactions: Allergies Penicillins [PCN] Allergy (Verified 05/21/15 12:05) Difficulty Breathing Date of admission: 09/15/16 12:19 Primary care physician: Pat Agee CNP Discharging clinician: Yessica Laird (Bam Kennedy) Anticipated date of discharge: 09/17/16 - Patient Status Disposition: Home, Self-Care Condition: Good Functional capacity at discharge: independent ambulation Overall status at discharge: patient is progressing back to baseline - Discharge Instructions Instructions: Methylprednisolone (By mouth), Hypokalemia (DC), Acute Nausea and Vomiting (DC), Ulcerative 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 Follow up with Dr. Armenta or GI within the next 7 days regarding treatment of your ulcerative colitis. Follow up with you primary care physician in the next 7-10 days regarding this hospital stay and further evaluation of kidney abnormality. - Diet and Activity Activity: resume usual activities as tolerated Diet: advance to your usual diet Interval History: 35 year old female with a history of Ulcerative colitis presented to the ED with abdominal pain, nausea and vomiting that has been going on for about a week. Patient states that she is feeling better today and is not having any abdominal pain currently but she did receive her pain meds just prior to encounter. She reports that her bowel movements appear like sand with some blood on them but states that this is normal and improving. She states that she is tolerating her regular diet well and has had no issues with it. She also reports that her nausea is well controlled with the anti-emetic. She denies any new or worsening symptoms. Denies fever, headache, chest pain, SOB, cough, abdominal pain, nausea, vomiting, abdominal pain, urinary symptoms, calf tenderness, weakness, loss of sensation. Hospital course: Ms. Perez is a 35 year old female with a history of Ulcerative colitis presented to the ED with abdominal pain, nausea and vomiting that has been going on for about a week. She is followed by Dr. Armenta and states that she saw him last Tuesday and symptoms really flared up on . Patient states that she has also had bloody diarrhea which has been going on for about a month but states that it has improved some. Patient reports mostly left sided abdominal pain but also has a little pain in the RUQ to mid epigastric area. States that her pain is worsened by walking and also by having a bowel movement. Patient reports that she does not tolerate a liquid diet very well because broth makes her even more nauseated. She would like her diet advanced and feels like she could tolerate a normal diet. Patient was started on solumedrol IV and GI consulted. CT abdomen/pelvis with contrast revealed acute moderate left hemicolitis with no obstruction, perforation, or abscess. Also revealed indetermintate 1.2 cm focus of hypodensity along the right mid kidney. Patient reported improvement of symptoms the following day. GI consult recommended increase in solumedrol. Patient reported continued improvement this morning and tolerated regular diet, improvement in bowels. Patient to be discharged with PO Medrol and follow up with GI as outpatient. Patient to follow up with pcp regarding renal finding and further evaluation. - Time Spent with Patient Total time spent providing and/or coordinating discharge services: Less than 30 minutes - Constitutional Vitals: Temp Pulse Resp BP Pulse Ox 98.2 F 64 16 109/68 96 09/17/16 06:45 09/17/16 06:45 09/17/16 06:45 09/17/16 06:45 09/17/16 06:45 General appearance: Present: A&O X 3, pleasant, no acute distress, answers questions appropriately - Head Head exam: Present: atraumatic, normal inspection, normocephalic - Eye Eye exam: Present: normal appearance - ENT ENT exam: Present: mucous membranes moist, normal exam, normal external ear exam , normal oropharynx - Neck Neck exam general surgery: Present: full ROM, normal inspection, supple, trachea midline. Absent: tenderness - Respiratory Respiratory exam: Present: CTAB. Absent: rales, rhonchi, wheezes - Cardiovascular Cardiovascular exam: Present: RRR, +S1, +S2. Absent: diastolic murmur, JVD, systolic murmur - GI/Abdominal GI/Abdominal exam: Present: normal bowel sounds, soft. Absent: distended, guarding, tenderness - Extremities Exam Extremities exam: Present: full ROM, normal inspection, warm. Absent: calf tenderness, pedal edema, tenderness - Neurological Exam Neurological exam: Present: alert, oriented X3, no focal deficits, strengths equal and symetr throughout. Absent: facial droop, speech deficit - Psychiatric Psychiatric exam: Present: normal affect, normal mood - Skin Skin exam: Present: dry, intact, normal color, warm. Absent: diaphoretic, erythema, pallor <Yessica Laird - Last Filed: 09/17/16 19:20> Date of admission: 09/15/16 12:19 Primary care physician: Pat Agee CNP Hospital course: Ms. Perez is a 35 year old female - Time Spent with Patient Total time spent providing and/or coordinating discharge services: - Constitutional Vitals: Temp Pulse Resp BP Pulse Ox 98.2 F 64 16 109/68 96 09/17/16 06:45 09/17/16 06:45 09/17/16 06:45 09/17/16 06:45 09/17/16 06:45 - Attending Attestation I examined this patient and reviewed laboratory, imaging and all diagnostic data. My medical decision-making was reviewed with Bam Bautista - Resident Physician. I agree with the documented findings, disposition and treatment plan as described above.
--- NOTE | 2016-09-17 11:52 | Gastroenterology Progress Note ---
Date of Encounter: 09/17/16 Time of Encounter: 10:25 - Assessment and plan (1) Ulcerative colitis Status: Acute Assessment and plan: CT A/P with acute moderate left hemicolitis, no obstruction, perforation, or abscess. Continue PO steroids as outpatient. Entyvio has been approved, and plan to start Entyvio as an outpatient next week. TB testing negative, histo negative, and hepatitis profile negative. Qualifiers: Ulcerative colitis location: unspecified ulcerative colitis location Digestive disease complication type: unspecified complication Qualified Code(s ): K51.919 - Ulcerative colitis, unspecified with unspecified complications (2) Abdominal pain Status: Acute Assessment and plan: Secondary to ulcerative colitis. Qualifiers: Abdominal location: unspecified location Qualified Code(s): R10.9 - Unspecified abdominal pain - Time Spent With Patient Total time spent is greater than 50% in coordination of care (as documented) at patient's floor/unit and/or counseling patient: - Subjective Interval history: Pt reports feeling better and is asking about being discharged. - Constitutional Vitals: Temp Pulse Resp BP Pulse Ox 98.2 F 64 16 109/68 96 09/17/16 06:45 09/17/16 06:45 09/17/16 06:45 09/17/16 06:45 09/17/16 06:45 General appearance: Present: cooperative, A&O X 3, no acute distress, answers questions appropriately - Head Head exam: Present: atraumatic, normocephalic - Eye Eye exam: Present: normal appearance, sclera anicteric - ENT ENT exam: Present: mucous membranes moist - Neck Neck exam general surgery: Present: normal inspection, trachea midline - Respiratory Respiratory exam: Present: CTAB. Absent: rales, rhonchi - Cardiovascular Cardiovascular exam: Present: RRR, +S1, +S2 - GI/Abdominal GI/Abdominal exam: Present: normal bowel sounds, soft, tenderness (Mild lower abdominal tenderness), no peritoneal signs. Absent: distended, firm, guarding - Rectal Rectal exam: Present: deferred - Extremities Exam Extremities exam: Present: warm - Neurological Exam Neurological exam: Present: no focal deficits - Psychiatric Psychiatric exam: Present: normal affect, normal mood - Skin Skin exam: Present: dry, intact, normal color, warm Results - Labs CBC & Chem 7: 09/17/16 08:52 09/17/16 08:52 Labs: Last Result Calcium 8.7 mg/dL (8.6-10.8) 09/17/16 08:52 Entire Visit Hgb 10.8 g/dL (11.5-15.4) L 09/17/16 08:52 Hct 33.4 % (35.3-44.9) L 09/17/16 08:52 Total Bilirubin 0.4 mg/dL (0.2-1.2) 09/15/16 08:50 AST 10 Units/L (5-34) 09/15/16 08:50 ALT 10 Units/L (0-55) 09/15/16 08:50 Lipase < 4 Units/L (8-78) L 09/15/16 08:50 Consult Discharge Plan - Plan Instructions: Methylprednisolone (By mouth), Hypokalemia (DC), Acute Nausea and Vomiting (DC), Ulcerative Colitis, 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 Follow up with Dr. Armenta or GI within the next 7 days regarding treatment of your ulcerative colitis. Follow up with you primary care physician in the next 7-10 days regarding this hospital stay and further evaluation of kidney abnormality. Referrals: Pat Agee CNP [Primary Care Provider] - 09/24/16 10:10 am Herrera Armenta MD [Partnered Physician] - 09/23/16 3:00 pm Prescriptions: Ondansetron ODT [Zofran ODT] 8 mg SL Q4HR #20 tab.rapdis MethylPREDNISolone [Medrol] 32 mg PO DAILY #7 tablet
== END 2016-09-17 11:13 | disposition home or self-care (01) ==
LOC: EMEROO 07:24 → 3ANU 07:24
PROVIDERS: ADMIT Internal Medicine; ATTEND Internal Medicine